=== PATIENT | female | born 2000 | race Caucasian/White ===

== ENCOUNTER → 2021-01-24 17:45 | Observation (INO) | END | disposition home or self-care (01) | LOC: 1NENULAB | PROVIDERS: ADMIT Advanced Practice Midwife; ATTEND Advanced Practice Midwife ==

== ENCOUNTER → 2021-04-23 19:24 | Observation (INO) ==
[2021-04-23 19:28] LABS: Bacteria,Urine Few per hpf (None-Few); Bilirubin,Urine Negative (Negative); Blood,Urine Negative (Negative); Calcium Oxalate Crystals,Urine Present per hpf; Clarity,Urine Turbid (Clear); Color,Urine Light-Yellow (Yellow); Glucose,Urine (UA) Normal (Normal); Ketones,Urine Negative (Negative); Leukocyte Esterase,Urine Large (Negative); Mucus,Urine Few per lpf (None-Few); Nitrite,Urine Negative (Negative); PH,Urine 6.5 pH Units (5.0-8.0); Protein,Urine Trace mg/dL (Neg-Trace); RBC,Urine 0-3 per hpf (0-3); Specific Gravity,Urine 1.016 (1.010-1.025); Squamous Epithelial Cell,Urine Moderate per hpf (None-Few); Urobilinogen,Urine Normal (Normal); WBC,Urine 0-3 per hpf (0-3)
== END | disposition home or self-care (01) ==
LOC: 1NENULAB
PROVIDERS: ADMIT Advanced Practice Midwife; ATTEND Advanced Practice Midwife

== ENCOUNTER 2021-05-11 04:00 | Inpatient (IN) ==
[2021-05-11] MEDS ORDERED: Naloxone 0.4 MG/ML INJ IVP PRN (04:12)
[2021-05-11] MEDS ORDERED: Metoclopramide 10 MG/2 ML VIAL IVP PRN (04:12)
[2021-05-11] MEDS ORDERED: Famotidine 20 MG/2 ML VIAL IVP PRN (04:12)
[2021-05-11 04:53] LABS: Basophils % 0.3 %; Eosinophils # 0.1 K/mcL (0.0-0.6); Eosinophils % 0.7 %; Hematocrit 31.5 % (35.3-44.9); Hemoglobin 10.2 g/dL (11.5-15.4); Immature Granulocytes % 0.4 % (0-4); Lymphocytes # 2.1 K/mcL (0.6-4.6); Lymphocytes % 28.7 %; Mean Corpuscular HGB Conc 32.4 g/dL (31.6-35.5); Mean Corpuscular Hemoglobin 27.6 pg (28.0-33.3); Mean Corpuscular Volume 85.4 fL (83.0-100.0); Monocytes # 0.4 K/mcL (0.0-1.3); Monocytes % 5.7 %; Neutrophils # 4.8 K/mcL (1.6-8.9); Platelet Count 267 K/mcL (140-400); Red Blood Count 3.69 M/mcL (3.82-4.97); Segmented Neutrophils % 64.2 %; White Blood Count 7.4 K/mcL (4.3-11.1)
[2021-05-11 05:03] LABS: Amphetamine Screen,Urine Negative ng/mL (Cutoff=1000); Barbiturate Screen,Urine Negative ng/mL (Cutoff=200); Benzodiazepines Screen,Urine Negative ng/mL (Cutoff=200); Cannabinoid Screen,Urine Negative ng/mL (Cutoff = 50); Cocaine Screen,Urine Negative ng/mL (Cutoff= 300); Opiate Screen,Urine Negative ng/mL (Cutoff=300); Phencyclidine Screen,Urine Negative ng/mL (Cutoff=25)
[2021-05-11] MEDS ORDERED: EPHEDrine 50 MG/ML VIAL IVP PRN (06:58)
[2021-05-11 07:25] LABS: Influenza A PCR Negative (Negative); Influenza B PCR Negative (Negative); Resp. Syncytial Virus PCR Negative (Negative)
[2021-05-11 07:26] LABS: SARS-CoV-2 by PCR (In House) Negative (Negative)
[2021-05-11] MEDS ORDERED: Oxytocin 20 units/ LR 1000 mL 20 UNIT/1,000 ML BAG IVC SCH ×2 (08:00→21:08)
[2021-05-11] MEDS: Ringers Solution, Lactated 1,000 ML IVC SCH ×2 (08:27→11:30)
[2021-05-11] MEDS ORDERED: *HR* Nalbuphine 10 MG/ML AMPUL IV PRN (08:55)
[2021-05-11] MEDS ORDERED: Ondansetron 4 MG/2 ML VIAL ONE (10:43)
[2021-05-11] MEDS: Epidural Premix (fent/bupiv) 110 ML EP SCH ×2 (11:30→16:20)
[2021-05-11] MEDS ORDERED: Ropivacaine/PF 0.2% 20 ML VIAL ONE (11:51)
[2021-05-11] MEDS ORDERED: Ondansetron 4 MG/2 ML VIAL IVP SCH (12:00)
[2021-05-11] MEDS ORDERED: *HR* Ropivacaine/PF 0.5% 20 ML VIAL ONE (14:46)
[2021-05-11] MEDS ORDERED: Lidocaine 1% 20 ML MDV ONE (18:07)
[2021-05-11] MEDS ORDERED: Rho Immune Globulin 1,500 UNIT SYRINGE IM PRN (21:08)
[2021-05-11] MEDS ORDERED: Benzocaine/Menthol 56 GM AEROSOL SPRAY TP PRN (21:08)
[2021-05-11] MEDS ORDERED: Ondansetron ODT 4 MG TAB.RAPDIS SL PRN (21:08)
[2021-05-11] MEDS ORDERED: Lanolin 7 G OINT...G. TP PRN (21:08)
[2021-05-11] MEDS ORDERED: Measles/Mumps/Rubella Vacc 0.5 ML VIAL SQ PRN (21:08)
[2021-05-11] MEDS ORDERED: Oxytocin 20 units/ LR 1000 mL 20 UNIT/1,000 ML BAG IVC ONE (21:08)
[2021-05-11] MEDS: Ibuprofen 600 MG TABLET PO SCH (22:43)
[2021-05-11] MEDS: Acetaminophen 325 MG TABLET PO SCH (22:44)
[2021-05-12 04:18] LABS: Basophils % 0.1 %; Eosinophils % 0.3 %; Hematocrit 25.3 % (35.3-44.9); Immature Granulocytes % 0.3 % (0-4); Lymphocytes # 2.1 K/mcL (0.6-4.6); Lymphocytes % 19.6 %; Mean Corpuscular HGB Conc 32.8 g/dL (31.6-35.5); Mean Corpuscular Hemoglobin 28.4 pg (28.0-33.3); Mean Corpuscular Volume 86.6 fL (83.0-100.0); Mean Platelet Volume 11.1 fL (9.4-12.4); Monocytes # 1.1 K/mcL (0.0-1.3); Monocytes % 10.2 %; Neutrophils # 7.4 K/mcL (1.6-8.9); Platelet Count 216 K/mcL (140-400); Red Blood Count 2.92 M/mcL (3.82-4.97); Red Cell Distribution Width 13.4 % (11.5-14.5); Segmented Neutrophils % 69.5 %; White Blood Count 10.6 K/mcL (4.3-11.1)
[2021-05-12 04:20] LABS: Hemoglobin 8.3 g/dL (11.5-15.4)
[2021-05-12] MEDS: Ibuprofen 600 MG TABLET PO SCH (07:40)
[2021-05-12] MEDS: Acetaminophen 325 MG TABLET PO SCH (07:41)
[2021-05-12 08:57] VITALS: BP 99/64; PULSE 80; TEMP 97.8; O2SAT 100
[2021-05-12] MEDS ORDERED: Prenatal Vit/FA 1 EACH TABLET PO SCH (09:00)
== END 2021-05-12 16:05 | disposition home or self-care (01) | DRG 807 ==
LOC: 1NENULAB 04:02 → 1NENUOBS 20:10
PROVIDERS: ADMIT Obstetrics & Gynecology; ATTEND Obstetrics & Gynecology